=== PATIENT | male | born 1990 | race African-American/Black ===

== ENCOUNTER 2016-11-08 17:32 | Emergency (ER) | payer OTHER, MEDICARE ==
[~2016-11-08] VITALS: Ht 182.9 cm; Wt 93.0 kg
[2016-11-08 17:43] VITALS: BP 141/82
--- NOTE | 2016-11-08 18:41 | ED GENERAL ADULT ---
History of Present Illness General Chief Complaint: General Adult Stated Complaint: "I DONT KNOW IF IM SICK OR NOT" Source: patient Exam Limitations: no limitations Vital Signs & Intake/Output Vital Signs & Intake/Output Vital Signs Date Time Temp Pulse Resp B/P Pulse O2 O2 Flow FiO2 Ox Delivery Rate 11/08 2008 98 Room Air 11/08 1743 98.4 93 18 141/82 98 Room Air Allergies Coded Allergies: No Known Drug Allergies (11/08/16) Triage Note: C/O NAUSEA X 10 DAYS, POOR APPETITE. DENIES ABDOMINAL PAIN, FEVER VOMITING OR CONSTIPATION. Triage Nurses Notes Reviewed? yes HPI: This patient is a 25-year-old male who presented to the emergency department today for a chief complaint of, "I think I might be sick." The patient reported that over the last week and a half he has had intermittent nausea, worse with the smell of certain foods, fatigue, and decreased appetite. He reported that he is still eating during the day but, "only small bowls of cereal or something. " The patient reported that he seems to be sleeping more during the day been normal. He denied any fevers, chills, chest pain, shortness of breath, abdominal pain, vomiting, constipation, diarrhea come urinary symptoms, or any other associated symptoms. (TAMMY MERCER PA-C) Reconcile Medications Ondansetron (Zofran Odt) 4 MG TAB.RAPDIS 1 TAB SL TID PRN NAUSEA (PAIGE HATHAWAY DO) Past History Travel History Traveled to [place] past 21 day No Medical History Any Pertinent Medical History? see below for history Cardiovascular: NONE Respiratory: NONE Gastrointestinal: NONE Hepatic: NONE Renal: NONE Musculoskeletal: NONE Psychiatric: NONE Endocrine: NONE Surgical History Surgical History: non-contributory Psychosocial History What is your primary language Slovak Tobacco Use: Never used ETOH Use: denies use Family History Hx Contributory? No (TAMMY MERCER PA-C) Review of Systems Review of Systems Constitutional: Reports: see HPI. EENTM: Reports: no symptoms. Respiratory: Reports: no symptoms. Cardiovascular: Reports: no symptoms. GI: Reports: see HPI. Genitourinary: Reports: no symptoms. Musculoskeletal: Reports: no symptoms. Skin: Reports: no symptoms. Neurological/Psychological: Reports: no symptoms. All Other Systems: Reviewed and Negative (TAMMY MERCER PA-C) Physical Exam Physical Exam General Appearance: well developed/nourished, no apparent distress, alert, awake Comments: Well-developed well-nourished person in no acute distress HEENT: Normal EENT exam, moist mucous membranes PERRLA bilaterally Neck: Supple, no lymphadenopathy Back: Normal gait Cardiovascular: Regular rate and rhythm with no murmurs, rubs, or gallops Respiratory: Chest nontender. No respiratory distress. Breath sounds clear to auscultation bilaterally with no wheezes, rales, rhonchi Abdomen: Soft, nontender and nondistended with normoactive bowel sounds Extremity: Normal and equal pulses. Neuro: Alert oriented x3, cranial nerves II through XII grossly intact. Skin: No appreciable rash on exposed skin, skin is warm and dry. Psych: Mood and affect is normal Core Measures ACS in differential dx? No CVA/TIA Diagnosis: No Severe Sepsis Present: No Septic Shock Present: No (TAMMY MERCER PA-C) Progress Differential Diagnoses I considered the following diagnoses in my evaluation of the patient: [Influenza , gastroenteritis, viral syndrome, hypothyroidism] Plan of Care: Orders Procedure Date/time Status RAPID VIRAL INFLUENZA A 11/08 1828 Complete COMPREHENSIVE METABOLIC PANEL 11/08 1828 Complete CBC WITHOUT DIFFERENTIAL 11/08 1828 Complete Laboratory Tests 11/08/16 1841: Anion Gap 11, Estimated GFR > 60, BUN/Creatinine Ratio 9.0, Glucose 102 H, Calcium 9.7, Total Bilirubin 0.7, AST 23, ALT 29, Alkaline Phosphatase 54, Total Protein 8.0, Albumin 4.8, Globulin 3.2, Albumin/Globulin Ratio 1.5, CBC w Diff NO MAN DIFF REQ, RBC 4.67 L, MCV 91.7, MCH 30.3, RDW 13.5, MPV 7.6, Gran % 75.7 H, Lymphocytes % 19.1 L, Monocytes % 4.0, Eosinophils % 0.9, Basophils % 0.3, Absolute Granulocytes 4.2, Absolute Lymphocytes 1.0 L, Absolute Monocytes 0.2, Absolute Eosinophils 0, Absolute Basophils 0, PUBS MCHC 33.1 Initial ED EKG: none (TAMMY MERCER PA-C) Departure Departure Disposition: HOME OR SELF CARE Condition: Stable Clinical Impression Primary Impression: Viral syndrome Referrals: PATIENT HAS NO PRIMARY CARE DR (PCP/Family) Additional Instructions: Please rest and be sure to stay hydrated. Take medication for nausea as prescribed. Return to the emergency department for any worsening symptoms or concerns. Departure Forms: Customer Survey General Discharge Information Prescriptions: Current Visit Scripts Ondansetron (Zofran Odt) 1 TAB SL TID PRN NAUSEA #10 TAB (TAMMY MERCER PA-C) PA/CONDITIONING MACHINE OPERATOR Co-Sign Statement Statement: ED Attending supervision documentation- [] I saw and evaluated the patient. I have also reviewed all the pertinent lab results and diagnostic results. I agree with the findings and the plan of care as documented in the PA's/CONDITIONING MACHINE OPERATOR's documentation. [x] I have reviewed the ED Record and agree with the PA's/CONDITIONING MACHINE OPERATOR's documentation. [] Additions or exceptions (if any) to the PAs/CONDITIONING MACHINE OPERATOR's note and plan are summarized below: [] (PAIGE HATHAWAY DO) Critical Care Note Critical Care Note Critical Care Time: non-applicable (TAMMY MERCER PA-C)
[2016-11-08 18:58] LABS: ABSOLUTE BASOPHIL COUNT 0 /CUMM (0.0-0.2); ABSOLUTE EOSINOPHIL COUNT 0 /CUMM (0.0-0.7); ABSOLUTE GRANULOCYTE CT 4.2 /CUMM (1.4-6.5); ABSOLUTE MONOCYTE COUNT 0.2 /CUMM (0.10-0.60); BASOPHIL % 0.3 % (0.0-2.0); EOSINOPHIL % 0.9 % (0-5); GRANULOCYTE % 75.7 % (42.2-75.2); HEMATOCRIT 42.8 % (42-52); MEAN CORPUSCULAR HGB 30.3 PG (27.0-31.0); MEAN CORPUSCULAR HGB CONC 33.1 G/DL (33.0-37.0); MEAN CORPUSCULAR VOLUME 91.7 FL (80.0-94.0); MEAN PLATELET VOLUME 7.6 FL (7.4-10.4); PLATELET COUNT 284 /CUMM (130-400); RBC DISTRIBUTION WIDTH 13.5 % (11.5-14.5); RED BLOOD CELL CT 4.67 /CUMM (4.70-6.10); WHITE BLOOD CELL COUNT 5.5 /CUMM (4.8-10.8)
[2016-11-08] MEDS ORDERED: ZOFRAN ODT4 M1 SL (20:02)
== END 2016-11-08 20:10 ==
LOC: ERH 17:32
PROVIDERS: Physician Assistant
DX: B34.9 Viral infection, unspecified (principal)
CPT/HCPCS: 87804; 87804-59